=== PATIENT | male | born 1995 | race African-American/Black ===

== ENCOUNTER 2018-12-21 19:19 | Emergency (ER) | payer OTHER ==
[~2018-12-21] VITALS: Ht 165.1 cm; Wt 68.5 kg
[2018-12-21 20:54] VITALS: BP 130/84; TEMP 98.1
== END 2018-12-21 20:54 | disposition home or self-care (01) ==
LOC: ED 19:19
PROC: 0HQGXZZ Repair Left Hand Skin, External Approach (ICD-10-PCS; principal; 2018-12-21)
DX: S61.211A Laceration without foreign body of left index finger without damage to nail, initial encounter (principal); W26.0XXA Contact with knife, initial encounter
CPT/HCPCS: 90471; 90715; 99283